=== PATIENT | male | born 1960 | race Caucasian/White ===

== ENCOUNTER → 2023-08-13 08:34 | Outpatient (REF) | payer BC, SELFPAY ==
[2023-08-13 09:30] LABS: % Basophils 0.7 % (0-2); % Eosinophils 2.9 % (0-6); % Immature Granulocytes 0.5 % (0-0.5); % Lymphocytes 29.6 % (20.5-51.1); % Monocytes 10.2 % (1.7-9.3); % Neutrophils 56.1 % (42.2-75.2); Absolute Eosinophils 0.2 10^3/uL (0-0.7); Absolute Lymphocytes 1.7 10^3/uL (1.2-3.4); Absolute Monocytes 0.6 10^3/uL (0.1-0.6); Absolute Neutrophils 3.1 10^3/uL (1.4-6.5); Hemoglobin 15.6 g/dL (13.0-18.0); Mean Corp Hgb Conc. 34.7 g/dL (33.0-37.0); Mean Corpuscular Hgb 31.1 pg (27.0-31.0); Mean Corpuscular Volume 89.8 fL (80.0-94.0); Mean Platelet Volume 9.3 fL (7.4-10.4); Nucleated Red Blood Cells % 0 % (-); Platelet Count 214 10^3/uL (130-400); Red Blood Cell Count 5.01 10^6/uL (4.70-6.10); Red Cell Dist. Width 12.8 % (11.5-14.5); White Blood Cell Count 5.6 10^3/uL (4.8-10.8)
[2023-08-13 10:01] LABS: ALT (SGPT) 33 U/L (0-50); AST (SGOT) 29 U/L (17-59); Albumin 4.1 g/dl (3.5-5.0); Alkaline Phosphatase 67 U/L (38-126); Blood Urea Nitrogen 17 mg/dl (9-20); Calcium 9.2 mg/dl (8.4-10.2); Carbon Dioxide 23 mmol/L (22-30); Chloride 103 mmol/L (98-107); Glucose 127 mg/dl (70-99); HDL Cholesterol 54 mg/dl; LDL Cholesterol, Calculated 48 mg/dl; Phosphorus 3.2 mg/dl (2.5-4.5); Potassium 4.6 mmol/L (3.5-5.1); Sodium 139 mmol/L (135-145); Total Bilirubin 0.8 mg/dl (0.2-1.3); Total Cholesterol 112 mg/dl (50-199); Total Protein 6.7 g/dl (6.3-8.2); Triglyceride 52 mg/dl (10-149); Very Low Density Lipoprotein 10 mg/dl (0-30); eGFR > 60.00
[2023-08-13 10:05] LABS: Erythrocyte Sed Rate 6 mm/hour (0-20)
[2023-08-13 10:43] LABS: Microalbumin, Random Urine 1.1 mg/dl (0.6-1.7); Microalbumin/creatinine Ratio 5.9 mg/g; TSH 2.69 uIU/ml (0.47-4.68)
[2023-08-13 11:02] LABS: Vitamin B12 619 pg/ml (239-931)
[2023-08-13 11:06] LABS: Glycohemoglobin (HgbA1c) 6.5 % (4.0-5.6)
== END ==
LOC: RAD 08:34
PROVIDERS: ATTENDING PHYSICIAN Family Medicine
DX: M25.571 Pain in right ankle and joints of right foot (principal); E11.9 Type 2 diabetes mellitus without complications; R25.3 Fasciculation; E78.5 Hyperlipidemia, unspecified; I10 Essential (primary) hypertension
CPT/HCPCS: 36415; 73610; 80053; 80061; 82043; 82570; 82607; 83036; 84100; 84443; 85025; 85652

== ENCOUNTER → 2024-03-29 09:05 | Outpatient (REF) | payer BC, SELFPAY ==
[2024-03-29 09:53] LABS: % Basophils 0.8 % (0-2); % Eosinophils 3.4 % (0-6); % Immature Granulocytes 0.2 % (0-0.5); % Lymphocytes 26.5 % (20.5-51.1); % Monocytes 8.8 % (1.7-9.3); % Neutrophils 60.3 % (42.2-75.2); Absolute Eosinophils 0.2 10^3/uL (0-0.7); Absolute Lymphocytes 1.3 10^3/uL (1.2-3.4); Absolute Monocytes 0.4 10^3/uL (0.1-0.6); Hemoglobin 15.5 g/dL (13.0-18.0); Mean Corp Hgb Conc. 34.4 g/dL (33.0-37.0); Mean Corpuscular Hgb 30.2 pg (27.0-31.0); Mean Corpuscular Volume 87.5 fL (80.0-94.0); Nucleated Red Blood Cells % 0 % (-); Platelet Count 214 10^3/uL (130-400); Red Blood Cell Count 5.14 10^6/uL (4.70-6.10); Red Cell Dist. Width 12.6 % (11.5-14.5)
[2024-03-29 10:32] LABS: ALT (SGPT) 37 U/L (0-50); AST (SGOT) 32 U/L (17-59); Albumin 4.7 g/dl (3.5-5.0); Alkaline Phosphatase 72 U/L (38-126); Blood Urea Nitrogen 16 mg/dl (9-20); Calcium 9.8 mg/dl (8.4-10.2); Carbon Dioxide 25 mmol/L (22-30); Chloride 102 mmol/L (98-107); Glucose 125 mg/dl (70-99); HDL Cholesterol 47 mg/dl; LDL Cholesterol, Calculated 56 mg/dl; Potassium 4.8 mmol/L (3.5-5.1); Sodium 139 mmol/L (135-145); Total Bilirubin 1.2 mg/dl (0.2-1.3); Total Cholesterol 126 mg/dl (50-199); Total Protein 7.1 g/dl (6.3-8.2); Triglyceride 116 mg/dl (10-149); Very Low Density Lipoprotein 23 mg/dl (0-30); eGFR > 60.00
[2024-03-29 10:36] LABS: Microalbumin, Random Urine 0.7 mg/dl (0.6-1.7)
[2024-03-29 10:43] LABS: Glycohemoglobin (HgbA1c) 6.2 % (4.0-5.6)
[2024-03-29 10:58] LABS: PSA, Total - Screen 2.17 ng/ml (0.0-4.0)
[2024-03-29 11:17] LABS: Vitamin B12 757 pg/ml (239-931)
== END ==
LOC: REG 09:05
PROVIDERS: ATTENDING PHYSICIAN Family Medicine
DX: E11.59 Type 2 diabetes mellitus with other circulatory complications (principal); I10 Essential (primary) hypertension; E78.00 Pure hypercholesterolemia, unspecified; Z12.5 Encounter for screening for malignant neoplasm of prostate; F41.1 Generalized anxiety disorder
CPT/HCPCS: 36415; 80053; 80061; 82043; 82570; 82607; 83036; 85025; G0103

== ENCOUNTER → 2024-09-05 09:07 | Outpatient (REF) | payer BC, SELFPAY ==
[2024-09-05 09:41] LABS: % Basophils 0.8 % (0-2); % Eosinophils 3.4 % (0-6); % Immature Granulocytes 0.4 % (0-0.5); % Lymphocytes 30.1 % (20.5-51.1); % Monocytes 8.4 % (1.7-9.3); % Neutrophils 56.9 % (42.2-75.2); Absolute Eosinophils 0.2 10^3/uL (0-0.7); Absolute Lymphocytes 1.5 10^3/uL (1.2-3.4); Absolute Monocytes 0.4 10^3/uL (0.1-0.6); Absolute Neutrophils 2.8 10^3/uL (1.4-6.5); Hematocrit 47.9 % (39.0-52.0); Mean Corp Hgb Conc. 33.4 g/dL (33.0-37.0); Mean Corpuscular Hgb 30.2 pg (27.0-31.0); Mean Corpuscular Volume 90.5 fL (80.0-94.0); Mean Platelet Volume 9.1 fL (7.4-10.4); Nucleated Red Blood Cells % 0 % (-); Platelet Count 207 10^3/uL (130-400); Red Blood Cell Count 5.29 10^6/uL (4.70-6.10); Red Cell Dist. Width 12.7 % (11.5-14.5)
[2024-09-05 10:00] LABS: Microalbumin, Random Urine 0.9 mg/dl (0.6-1.7); Microalbumin/creatinine Ratio 4.8 mg/g
[2024-09-05 10:13] LABS: ALT (SGPT) 37 U/L (0-50); AST (SGOT) 29 U/L (17-59); Albumin 4.7 g/dl (3.5-5.0); Alkaline Phosphatase 79 U/L (38-126); Blood Urea Nitrogen 17 mg/dl (9-20); Calcium 9.5 mg/dl (8.4-10.2); Carbon Dioxide 26 mmol/L (22-30); Chloride 103 mmol/L (98-107); Glucose 134 mg/dl (70-99); HDL Cholesterol 47 mg/dl; LDL Cholesterol, Calculated 59 mg/dl; Potassium 4.7 mmol/L (3.5-5.1); Sodium 138 mmol/L (135-145); Total Bilirubin 1.2 mg/dl (0.2-1.3); Total Cholesterol 127 mg/dl (50-199); Total Protein 7.3 g/dl (6.3-8.2); Triglyceride 105 mg/dl (10-149); Very Low Density Lipoprotein 21 mg/dl (0-30); eGFR > 60.00
[2024-09-05 10:15] LABS: Glycohemoglobin (HgbA1c) 6.4 % (4.0-5.6)
== END ==
LOC: REG 09:07
PROVIDERS: ATTENDING PHYSICIAN Family Medicine
DX: E11.59 Type 2 diabetes mellitus with other circulatory complications (principal); E78.00 Pure hypercholesterolemia, unspecified; I10 Essential (primary) hypertension
CPT/HCPCS: 36415; 80053; 80061; 82043; 82570; 83036; 84443; 85025

== ENCOUNTER 2025-02-18 16:20 | Emergency (ER) | payer BC, SELFPAY ==
[2025-02-18 16:31] VITALS: BP 144/91
--- NOTE | 2025-02-18 20:18 | ED.GENMED ---
History of Present Illness
General
Chief Complaint: Skin Surface Trauma
Source: patient
Time Seen by Provider: 02/18/25 18:13
History of Present Illness
History of Present Illness:
64-year-old male presents to the emergency room for evaluation after an injury to his left thumb. Patient was using a mandolin when he lacerated his thumb. Patient is right-hand dominant. Patient had previous surgery on this thumb do a tendon
laceration. No other complaints. Tetanus was 5 years ago.
Past History
Past History
ED Past Medical History: NIDDM; Negative HTN
ED Past Surgical History: Urological (Bladder biopsy); Negative Cardiac
Social History
Tobacco: Non-smoker
Alcohol: None
Drug: None
Personal:
Living: with family
Employment: Employed
Family History
Family History: Other (Noncontributory)
Phy Exam
Physical Exam
Physical Exam:
General: Awake, Alert, Oriented X3. No acute distress.
Vitals: unremarkable
Head: Atraumatic
Eyes: Pupils equal, EOMI
Neck: Trachea midline
Neuro: Nonfocal
Skin: Warm, dry, no rash
Extremities: pulses equal b/l, no edema. Partial amputation distal thumb. Part of the nailbed involved. Laceration oriented at the tip of his thumb and angling down through the top of the nail towards the radial aspect of the distal phalanx.
Course
Vital Signs
Initial and Last Documented VS:
Initial Vital Signs
Temp Pulse Resp BP Pulse Ox
97.1 F 86 16 144/91 97
02/18/25 16:31 02/18/25 16:31 02/18/25 16:31 02/18/25 16:31 02/18/25 16:31
Last Documented Vital Signs
Temp Pulse Resp BP Pulse Ox
97.1 F 86 16 144/91 97
02/18/25 16:31 02/18/25 16:31 02/18/25 16:31 02/18/25 16:31 02/18/25 20:21
Procedures
Laceration Closure
Left Thumb:
Status of Wound: clean
Size of Wound in cm: 1.5
Description of Wound Edges: sharp
Preparation: cleaned with saline
Anesthesia: Digital-Regional
Revision/Debridement: routine- no revision
Wound exploration: explored to base- no FB
Type of Closure: single layer closure
Skin Closure Material: 4-0 nylon
Number of sutures: 5
MDM/Problems Addressed
Differential Diagnosis Includes:
Laceration
MDM/Problems Addressed:
Digital block placed. Laceration sutured. Follow-up with Dr. Valentin as an outpatient
*Pulse Oximetry
SaO2: 97
Oxygen Mode of Delivery: Room air
Patient hypoxic: no
*Critical Care Note
Total Time (30-74mins, 75-104mins- exclusive of procedures): Not Applicable
ED Attending Note
-
Portions of this chart may have been created with voice recognition software.� Occasional wrong word or��sound alike� substitutions may have occurred due to the inherent limitations of voice recognition software.
Discharge Plan
Departure
Patient Disposition: Home (Routine Discharge)
Date of Disposition: 02/18/25
Time of Disposition: 20:20
Patient with high blood pressure during this ER visit?: No
Condition: Good
Discharge Problem:
Laceration of thumb
Instructions: Laceration Repair With Stitches (DC)
Prescriptions:
No Action
cephalexin 500 mg tablet
500 mg PO BID Qty: 10 0RF
Referrals:
Kandis Do MD [Family Provider, Family Practice]
Activity Restrictions/Additional Instructions:
stitches should be removed in 10 days. Follow up with Dr. Valentin
Interventions
Interventions:
*Risk Screen - Suicide Last Done: 02/18/25 16:31
*General Assessment Last Done: 02/18/25 16:31
*Neglect/Abuse Screening Last Done: 02/18/25 16:31
*ED COVID-19 Vaccine History Last Done: 02/18/25 16:31
*Nursing Disposition Last Done: 02/18/25 20:36
ED-Skin Assessment Last Done: 02/18/25 17:30
Discharge Date and Time
Discharge Date/Time: 02/18/25 20:36
Print Language: FRENCH
== END 2025-02-18 20:36 | disposition home or self-care (01) ==
LOC: EMR 16:20
PROVIDERS: EMERGENCY PHYSICIAN Emergency Medicine; FAMILY PHYSICIAN Family Medicine
DX: S61.112A Laceration without foreign body of left thumb with damage to nail, initial encounter (principal); W27.4XXA Contact with kitchen utensil, initial encounter; Y93.G1 Activity, food preparation and clean up; E11.9 Type 2 diabetes mellitus without complications
CPT/HCPCS: 99282; 12001

== ENCOUNTER → 2025-05-08 07:39 | Outpatient (REF) | payer BC, SELFPAY | LOC: REG 07:39 | PROVIDERS: ATTENDING PHYSICIAN Specialist | DX: C67.9 Malignant neoplasm of bladder, unspecified (principal) | CPT/HCPCS: 88112 ==

== ENCOUNTER → 2025-05-26 10:10 | Outpatient (REF) | payer BC, SELFPAY ==
[2025-05-26 11:14] LABS: ALT (SGPT) 41 U/L (0-50); AST (SGOT) 30 U/L (17-59); Albumin 4.7 g/dl (3.5-5.0); Alkaline Phosphatase 68 U/L (38-126); Blood Urea Nitrogen 17 mg/dl (9-20); Calcium 9.4 mg/dl (8.4-10.2); Carbon Dioxide 29 mmol/L (22-30); Chloride 104 mmol/L (98-107); Glucose 128 mg/dl (70-99); Potassium 4.9 mmol/L (3.5-5.1); Sodium 136 mmol/L (135-145); Total Protein 7.5 g/dl (6.3-8.2); eGFR > 60.00
[2025-05-26 12:39] LABS: Glycohemoglobin (HgbA1c) 6.4 % (4.0-5.9)
== END ==
LOC: REG 10:10
PROVIDERS: ATTENDING PHYSICIAN Family Medicine; REFERRING PHYSICIAN Specialist
DX: F32.0 Major depressive disorder, single episode, mild (principal); F41.1 Generalized anxiety disorder; E11.59 Type 2 diabetes mellitus with other circulatory complications; I10 Essential (primary) hypertension; E78.00 Pure hypercholesterolemia, unspecified
CPT/HCPCS: 36415; 80053; 83036